=== PATIENT | male | born 1965 | race Caucasian/White ===

== ENCOUNTER → 2017-02-27 | Outpatient (CLI) | payer OTHER ==
[~2017-02-27] MED LIST: BENADRYL25 M1 PO; DULCOLAX100 MG PO; ECOTRIN325 MG PO; MEDROL DOSEPAK4 MG PO; MOBIC15 MG PO; PERCOCET 325 MG1 TA2 PO; PERCOCET 325 MG1 TA5 PO
== END | disposition home or self-care (01) ==
LOC: LAB 08:46 → MRI 09:00
DX: M16.0 Bilateral primary osteoarthritis of hip (principal); M25.551 Pain in right hip; Z96.641 Presence of right artificial hip joint

== ENCOUNTER → 2018-03-07 | Outpatient (CLI) | payer OTHER | END | disposition home or self-care (01) | LOC: RAD 09:43 | DX: M16.11 Unilateral primary osteoarthritis, right hip (principal); Z96.649 Presence of unspecified artificial hip joint ==

== ENCOUNTER → 2018-03-14 | Outpatient (CLI) | payer OTHER ==
[~2018-03-14] MED LIST changes: +FISH OIL CONC1000 M1 PO; +Motrin,Rufen800 MG PO; +VITAMIN D22000 UNIT PO; +ZESTORETIC 20-1 EACH PO
--- NOTE | ~2018-03-14 | ST ---
[place], [place] EXERCISE STRESS TEST REPORT NAME: TAHIRA BAI UNIT #: [id number] ROOM: DOCTOR: TOBI PEARSON MD BIRTHDATE: [birth year] DOS: 03/14/2018 LEXISCAN STRESS EKG. REFERRING PHYSICIAN: Dr. Abarca INDICATION: Central chest pain. The patient underwent standard protocol Lexiscan stress EKG. The patient's baseline EKG is sinus julito with a heart rate of 52 with blood pressure 110/70. The patient's peak heart rate 75 beats per minute with the blood pressure 108/62. The patient had no chest pain and no EKG changes and in terms of arrhythmias, only had isolated PVCs. SUMMARY OF FINDINGS: Unremarkable Lexiscan stress EKG. Please see separate report for perfusion scan imaging report. TOBI PEARSON MD CM:STRESS:EXERCISE STRESS TEST REPORT [id number] TOBI PEARSON MD
== END | disposition home or self-care (01) ==
LOC: CARD 01:47
DX: R07.9 Chest pain, unspecified (principal)

== ENCOUNTER → 2018-05-11 | Outpatient (CLI) | payer OTHER | LOC: CARD 11:23 | DX: I51.7 Cardiomegaly (principal); R00.2 Palpitations; R06.02 Shortness of breath ==